=== PATIENT | male | born 1970 | race Caucasian/White ===

== ENCOUNTER 2016-09-17 13:56 | Emergency (ER) | payer OTHER | END 2016-09-17 16:12 | disposition home or self-care (01) | LOC: ED 13:56 | DX: Z53.21 Procedure and treatment not carried out due to patient leaving prior to being seen by health care provider (principal) ==

== ENCOUNTER 2016-09-18 10:04 | Emergency (ER) | payer OTHER | END 2016-09-18 11:08 | disposition home or self-care (01) | LOC: ED 10:04 | DX: R59.9 Enlarged lymph nodes, unspecified (principal); M79.622 Pain in left upper arm ==